=== PATIENT | female | born 1975 | race Hispanic/Latino ===

== ENCOUNTER 2024-06-12 06:44 | Emergency (ER) | payer OTHER ==
[2024-06-12] MEDS ORDERED: KETOROLAC 30 MG/ML INJ ONE (07:24)
[2024-06-12] MEDS ORDERED: dexAMETHasone 10 MG/ML VIAL ONE (07:24)
[2024-06-12 07:56] LABS: Absolute Basophils 0.1 K/uL (0-0.5); Absolute Eosinophils 0.2 K/uL (0-0.5); Absolute Lymphocytes (CBC) 1.7 K/uL (0.7-4.9); Absolute Monocytes 0.3 K/uL (0.1-1.3); Absolute Neutrophil 4.5 K/uL (1.8-8.0); Eosinophils % 3.4 % (0-4.4); Hemoglobin 14.5 g/dL (12.0-15.0); Lymphocytes % 24.5 % (15.3-44.8); MCH 28.9 pg (27.0-35.0); MCHC 33.7 g/dL (32.0-36.0); MCV 85.9 fL (80-100); MPV 7.7 fL (7.6-11.3); Monocytes % 5.1 % (3.3-12.3); Platelets 301 thou/uL (152-406); RBC Red Blood Cell Count 5.01 M/uL (3.86-4.86); Red Cell Distribution Width 13.3 % (12.1-15.2)
--- NOTE | 2024-06-12 08:11 | RAD REPORT ---
EXAMINATION: ONE VIEW CHEST XR CLINICAL INDICATION: Female, 49 years old.,right shoulder radiating pain TECHNIQUE: Frontal chest projection is submitted. Examination is limited by patient positioning and t echnique. COMPARISON: No prior exam. FINDINGS: The lungs are well inflated and clear. No pneumothorax or sizable effusion. The heart is normal in s ize. Mediastinal contours are unremarkable. IMPRESSION: No acute intrathoracic abnormalities.
--- NOTE | 2024-06-12 08:12 | RAD REPORT ---
EXAMINATION: CERVICAL SPINE 3 VIEWS CLINICAL INDICATION: Female, 49 years old. right shoulder/arm pain TECHNIQUE: AP, lateral and odontoid views of the cervical spine were obtained. COMPARISON: No prior exam. FINDINGS: Alignment: The cervical spine has normal alignment. Straightening of normal cervical lordosis, could be positional or secondary to muscle spasm. Bones: Vertebral body heights are maintained. No aggressive osseous lesions. Discs: Disc heights are maintained. Soft Tissue: No soft tissue abnormalities. IMPRESSION: No acute cervical spine fracture or subluxation. Straightening of normal cervical lordosis, could be positional or secondary to muscle spasm.
[2024-06-12] MEDS ORDERED: MORPHINE 4 MG/ML SYR ONE (08:14)
[2024-06-12 08:19] LABS: Anion Gap 7.6 mEq/L (5.0-15.0); BUN Blood Urea Nitrogen 11 mg/dL (7-18); Bicarbonate 28 mEq/L (21-32); Glomerular Filtration Rate 108 ml/min (=/>90); Glucose Level 109 mg/dL (74-106); Potassium 3.6 mEq/L (3.5-5.1); Sodium Level 139 mEq/L (136-145)
[2024-06-12 08:21] LABS: Troponin High Sensitivity < 3.0 pg/mL (<58.9)
--- NOTE | 2024-06-12 09:40 | RAD REPORT ---
EXAM: Angio Aorta For Dissection HISTORY: [facility] n/a scapular/right arm pain Bed Name: 19 COMPARISON: None TECHNIQUE: Multiple contiguous axial images were obtained a CTA of the chest and abdomen with contras t per aortic dissection protocol. Sagittal and coronal 3-D MIP reformats were performed. One or more of the following dose reduction techniques were used: Automated exposure control, adjustment of the mA and kV according to patient size, and iterative reconstruction. Unless otherwise specified, incidental findings do not require dedicated imaging follow-up. FINDINGS: PULMONARY ARTERIES: Normal in caliber without filling defects to suggest pulmonary emboli. MEDIASTINUM: No hilar or mediastinal lymphadenopathy. LUNGS: No focal infiltrates or masses. PLEURAL SPACE: No pleural effusion or pneumothorax. LIVER: Unremarkable. KIDNEYS: Unremarkable. SPLEEN: Unremarkable. PANCREAS: Unremarkable. Status post cholecystectomy. BOWEL: Unremarkable. RETROPERITONEUM: No lymphadenopathy BONES: Degenerative changes in the spine. ASCENDING THORACIC AORTA: Normal caliber without evidence of dissection or aneurysmal dilatation. DESCENDING THORACIC AORTA: Normal caliber without evidence of dissection or aneurysmal dilatation. ABDOMINAL AORTA: Normal caliber without evidence of dissection or aneurysmal dilatation. CELIAC TRUNK: Patent SMA: Patent SILVESTRE: Patent RENAL ARTERIES: Bilateral single renal arteries without significant atherosclerotic disease IMPRESSION: No evidence of thoracic or abdominal aortic aneurysm or dissection. No other acute findings.
[2024-06-12] MEDS ORDERED: HYDROMORPHONE HCL 1 MG/ML INJ ONE (09:55)
--- NOTE | 2024-06-12 10:27 | EDPHYS ---
Physician Documentation [facility] Name: Erna Hua Age: 49 yrs Sex: Female : 1975 Arrival Date: 06/12/2024 Time: 06:44 Bed 19 Private MD: ED Physician Chinedu Valiente HPI: 06/12 07:14 This 49 yrs old Female presents to ER via Ambulatory with complaints of rn Shoulder Pain, pain right shoulder blade. 07:14 The patient or guardian complains of pain. The complaints affect the right arm and rn right scapular area. Onset: The symptoms/episode began/occurred 3 day(s) ago. Treatment prior to arrival includes: Massage and [id number] medication. Modifying factors: The symptoms are alleviated by nothing. the symptoms are aggravated by movement. Severity of symptoms: At their worst the symptoms were moderate, in the emergency department the symptoms are unchanged. The patient has not experienced similar symptoms in the past. Patient reports right shoulder and shoulder blade pain that began 3 days ago. Patient denies injury. No chest pain or shortness of breath. Reports aching and pain that radiates down right arm. No weakness. Try massage and [id number] medication and only helping a little bit but returns. No neck pain or neck injury. No fever or chills.. 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 - Infectious Disease History:: Denies. - Social history:: Smoking status: Patient denies any tobacco usage or history of. - Family history:: not pertinent. - Hospitalizations: : No recent hospitalization is reported. ROS: 07:14 Constitutional: Negative for fever, chills, and weight loss, Neck: Negative for injury, rn pain, and swelling, Cardiovascular: Negative for chest pain, palpitations, and edema, Respiratory: Negative for shortness of breath, cough, wheezing, and pleuritic chest pain, Abdomen/GI: Negative for abdominal pain, nausea, vomiting, diarrhea, and constipation, Back: Negative for injury and pain, MS/Extremity: Positive for right shoulder and arm pain Skin: Negative for injury, rash, and discoloration, Neuro: Negative for headache, weakness, numbness, tingling, and seizure, Exam: 07:14 Constitutional: This is a well developed, well nourished patient who is awake, alert, rn appears uncomfortable. Position of comfort is right arm above her head Cardiovascular: Regular rate and rhythm. No pulse deficits. Respiratory: No increased work of breathing, no retractions or nasal flaring. Skin: Warm, dry, no cyanosis MS/ Extremity: Pulses equal, no cyanosis. Neurovascular intact. Painful range of motion of the right arm. No gross deformity. Equal circumference. Neuro: Awake and alert, GCS 15, oriented to person, place, time, and situation. Motor strength 5/5 in all extremities. Sensory grossly intact. 11:37 ECG was reviewed by the Attending Physician. rn Vital Signs: 06:56 Weight 81.65 kg; Height 5 ft. 2 in. ; vc1 06:59 BP 141 / 78; Pulse 67; Resp 18; Temp 97.5(TE); Pulse Ox 100% on R/A; aa5 10:03 BP 127 / 83; Pulse 63; Resp 19 S; Pulse Ox 100% on R/A; Pain 8/10; aa5 10:31 BP 113 / 67; Pulse 52; Resp 16 S; Pulse Ox 98% on R/A; aa5 06:56 Body Mass Index 32.92 (81.65 kg, 157.48 cm) vc1 10:03 Pain Scale: Adult aa5 MDM: 06:59 Medical Screening Exam initiated rn 10:25 Differential diagnosis: tendonitis, Radiculopathy, muscle spasm, pain in arm, radiated rn pain. Data reviewed: vital signs, nurses notes, lab test result(s), EKG, radiologic studies, CT scan, plain films, and as a result, I will discharge patient. Counseling: I had a detailed discussion with the patient and/or guardian regarding the historical points, exam findings, and any diagnostic results supporting the discharge/admit diagnosis, lab results, radiology results, the need for outpatient follow up, to return to the emergency department if symptoms worsen or persist or if there are any questions or concerns that arise at home. Response to treatment: the patient's symptoms have mildly improved after treatment, and as a result, I will discharge patient. Special discussion: I discussed with the patient/guardian in detail that at this point there is no indication for admission to the hospital. It is understood, however, that if the symptoms persist or worsen the patient needs to return immediately for re-evaluation. ED course: No acute findings and workup including x-rays and CT chest abdomen pelvis aorta. Troponin negative. ECG without ischemia. Patient still denies any chest pain. Right arm pain and scapular pain that is worsened with range of motion and palpation. No skin changes or evidence of infection. Will discharge home with medication and given return precautions.. 06/12 07:06 Order name: Basic Metabolic Panel; Complete Time: 08:22 rn 06/12 07:06 Order name: CBC with Diff; Complete Time: 08:12 rn 06/12 07:06 Order name: Troponin HS; Complete Time: 08:22 rn 06/12 07:06 Order name: XRAY Chest (1 view); Complete Time: 08:12 rn 06/12 07:06 Order name: XRAY C Spine Ap/lat; Complete Time: 08:12 rn 06/12 08:24 Order name: CT Aorta for Dissection; Complete Time: 09:42 rn 06/12 07:06 Order name: Cardiac monitoring; Complete Time: : rn 06/12 07:06 Order name: EKG - Nurse/Tech; Complete Time: : rn 06/12 07:06 Order name: IV Saline Lock; Complete Time: :49 rn 06/12 07:06 Order name: Labs collected and sent; Complete Time: : rn 06/12 07:06 Order name: O2 Per Protocol; Complete Time: : rn 06/12 07:06 Order name: O2 Sat Monitoring; Complete Time: :49 rn EC:37 Rate is 72 beats/min. Rhythm is regular. QRS [place] is Normal. NC interval is normal. QRS rn interval is normal. QT interval is normal. No Q waves. T waves are Normal. No ST changes noted. Clinical impression: NSR w/ Non-specific ST/T Changes. Interpreted by me. Reviewed by me. Administered Medications: 07:49 Drug: Decadron - Dexamethasone IVP 10 mg IVP once Route: IVP; Site: right antecubital; aa5 08:15 Follow up: Response: No adverse reaction aa5 07:49 Drug: Ketorolac IVP 15 mg IVP once Route: IVP; Site: right antecubital; aa5 08:15 Follow up: Response: No adverse reaction; Pain is unchanged, physician notified aa5 08:20 Drug: morphine IVP or IV 4 mg IVP once over 4 mins Route: IVP; Infused Over: 4 mins; kc6 Site: right antecubital; 08:30 Follow up: Response: No adverse reaction aa5 10:03 Drug: HYDROmorphone IVP 1 mg IVP once Route: IVP; Site: right antecubital; aa5 10:32 Follow up: Response: No adverse reaction aa5 Disposition Summary: 06/12/24 10:27 Discharge Ordered Notes: Location: Home rn Problem: new rn Symptoms: have improved rn Condition: Stable rn Diagnosis - Pain in right upper arm rn Followup: rn - With: Private Physician - When: As needed - Reason: Recheck today's complaints, Re-evaluation by your physician Discharge Instructions: - Discharge Summary Sheet rn - Musculoskeletal Pain rn - Pain Without a Known Cause rn Forms: - Medication Reconciliation Form rn - Antibiotic manager rn case - Prescription Opioid Use rn - Patient Portal Instructions rn - Leadership Thank You Letter rn Prescriptions: - gabapentin 100 mg Oral capsule - take 1 capsule ORAL route every 12 hours As needed; 14 capsule; Refills: 0, rn Product Selection Permitted - Tramadol 50 mg Oral Tablet - take 1 tablet ORAL route every 8 hours as needed; 12 tablet; Refills: 0, rn Product Selection Permitted - Medrol (Jossue) 4 mg Oral Tablets, Dose Pack - take 1 tablet ORAL route as directed - follow package instructions; 1 packet; rn Refills: 0, Product Selection Permitted Signatures: Dispatcher [employer] Chinedu Ann MD MD rn Calderon, Audri, RN RN aa5 Geri Zheng RN RN vc1 Valerie Quintero RN RN kc6 Corrections: (The following items were deleted from the chart) 07:06 07:06 BASIC METABOLIC PANEL+C.LAB.BRZ ordered. EDMS EDMS 07:06 07:06 CBC+H.LAB.BRZ ordered. EDMS EDMS 07:07 07:06 Troponin High Sensitivity+C.LAB.BRZ ordered. EDMS EDMS 07:07 07:07 Chest Single View+RAD.RAD.BRZ ordered. EDMS EDMS 07:07 07:07 C Spine Ap/Lat+RAD.RAD.BRZ ordered. EDMS EDMS
--- NOTE | 2024-06-12 10:27 | ER ---
Nurse's Notes [facility] Name: Erna Hua Age: 49 yrs Sex: Female : 1975 Arrival Date: 06/12/2024 Time: 06:44 Bed 19 Private MD: Diagnosis: Pain in right upper arm Presentation: 06/12 06:56 Chief complaint: Patient states: Pain to right shoulder blade that radiates down right vc1 arm, started Wednesday. Coronavirus screen: Client denies travel out of the [place] in the last 14 days. At this time, the client does not indicate any symptoms associated with coronavirus-19. Ebola Screen: Patient negative for fever greater than or equal to 101.5 degrees Fahrenheit, and additional compatible Ebola Virus Disease symptoms Patient denies exposure to infectious person. Patient denies travel to an Ebola-affected area in the 21 days before illness onset. No symptoms or risks identified at this time. Initial Sepsis Screen: Does the patient meet any 2 criteria? No. Patient's initial sepsis screen is negative. Does the patient have a suspected source of infection? No. Patient's initial sepsis screen is negative. Risk Assessment: Do you want to hurt yourself or someone else? Patient reports no desire to harm self or others. Onset of symptoms was June 09, 2024. Care prior to arrival: None. Activity prior to arrival: None. 06:56 Method Of Arrival: Ambulatory vc1 06:56 Acuity: ED 4 vc1 Triage Assessment: 07:10 General: Appears in no apparent distress. uncomfortable, Behavior is calm, cooperative, vc1 appropriate for age. Pain: Complains of pain in right scapular area Pain radiates to right arm Pain currently is 10 out of 10 on a pain scale. Quality of pain is described as sharp. EENT: No deficits noted. No signs and/or symptoms were reported regarding the EENT system. Neuro: Level of Consciousness is awake, alert, obeys commands, Oriented to person, place, time, situation, Appropriate for age. Cardiovascular: Capillary refill < 3 seconds Patient's skin is warm and dry. Respiratory: Airway is patent Respiratory effort is even, unlabored, Respiratory pattern is regular, symmetrical. GI: No deficits noted. No signs and/or symptoms were reported involving the gastrointestinal system. : No deficits noted. No signs and/or symptoms were reported regarding the genitourinary system. Derm: Skin is intact, is healthy with good turgor, Skin is dry, Skin is normal, Skin temperature is warm. Musculoskeletal: Circulation, motion, and sensation intact. Range of motion: intact in all extremities, Reports pain in right scapular area since Wednesday06/09/24. 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 - Infectious Disease History:: Denies. - Social history:: Smoking status: Patient denies any tobacco usage or history of. - Family history:: not pertinent. - Hospitalizations: : No recent hospitalization is reported. Screenin:09 Abuse screen: Denies threats or abuse. Nutritional screening: No deficits noted. vc1 Tuberculosis screening: No symptoms or risk factors identified. 07:40 [facility] ED Fall Risk Assessment (Adult) History of falling in the last 3 months, aa5 including since admission No falls in past 3 months (0 pts) Confusion or Disorientation No (0 pts) Intoxicated or Sedated No (0 pts) Impaired Gait No (0 pts) Mobility Assist Device Used No (0 pt) Altered Elimination No (0 pt) Score/Fall Risk Level 0 - 2 = Low Risk Oriented to surroundings, Maintained a safe environment, Educated pt \\T\\ family on fall prevention, incl call for assistance when getting out of bed, Assessed \\T\\ reinforced patient's understanding of fall precautions. Assessment: 07:40 General: Appears uncomfortable, Behavior is calm, cooperative. Pain: Complains of pain aa5 in right scapular area Pain radiates to right shoulder and right arm Pain Quality of pain is described as throbbing, Pain began Pt states "it started Wednesday in my shoulder blade and Wednesday it moved to my arm" Is continuous, Alleviated by "raising my arm up" Noted to be restless. Neuro: Level of Consciousness is awake, alert, obeys commands, Oriented to person, place, time, situation. Cardiovascular: Heart tones S1 S2 present Patient's skin is warm and dry. Rhythm is sinus rhythm. Respiratory: Airway is patent Respiratory effort is even, unlabored, Respiratory pattern is regular, symmetrical. GI: No signs and/or symptoms were reported involving the gastrointestinal system. : No signs and/or symptoms were reported regarding the genitourinary system. EENT: No signs and/or symptoms were reported regarding the EENT system. Derm: Skin is pink, warm \\T\\ dry. Musculoskeletal: Range of motion: intact in all extremities. 10:02 Reassessment: Patient is alert, oriented x 3, equal unlabored respirations, skin aa5 warm/dry/pink. Patient states symptoms have not improved. General: Appears uncomfortable. Pain: Pain currently is 8 out of 10 on a pain scale. Pain: Noted to be moaning, restless. 10:47 Reassessment: Patient is alert, oriented x 3, equal unlabored respirations, skin aa5 warm/dry/pink. Vital Signs: 06:56 Weight 81.65 kg; Height 5 ft. 2 in. ; vc1 06:59 BP 141 / 78; Pulse 67; Resp 18; Temp 97.5(TE); Pulse Ox 100% on R/A; aa5 10:03 BP 127 / 83; Pulse 63; Resp 19 S; Pulse Ox 100% on R/A; Pain 8/10; aa5 10:31 BP 113 / 67; Pulse 52; Resp 16 S; Pulse Ox 98% on R/A; aa5 06:56 Body Mass Index 32.92 (81.65 kg, 157.48 cm) vc1 10:03 Pain Scale: Adult aa5 ED Course: 06:50 Patient arrived in ED. gm2 06:59 Chinedu Valiente MD is Attending Physician. rn 07:04 Triage completed. vc1 07:09 Arm band placed on left wrist. vc1 07:10 Patient has correct armband on for positive identification. Bed in low position. Pulse vc1 ox on. NIBP on. 07:38 XRAY Chest (1 view) In Process Unspecified. EDMS 07:38 XRAY C Spine Ap/lat In Process Unspecified. EDMS 07:43 EKG done, by ED staff, reviewed by Chinedu Valiente MD. aa5 07:45 Initial lab(s) drawn, by me, sent to lab. Inserted saline lock: 20 gauge in right aa5 antecubital area, using aseptic technique. Blood collected. Flushed with 10 mL NS. 07:49 Emily Rincon, RN is Primary Nurse. aa5 07:54 No provider procedures requiring assistance completed. aa5 08:43 CT Aorta for Dissection In Process Unspecified. EDMS 10:47 IV discontinued, intact, bleeding controlled, No redness/swelling at site. Pressure aa5 dressing applied. Administered Medications: 07:49 Drug: Decadron - Dexamethasone IVP 10 mg IVP once Route: IVP; Site: right antecubital; aa5 08:15 Follow up: Response: No adverse reaction aa5 07:49 Drug: Ketorolac IVP 15 mg IVP once Route: IVP; Site: right antecubital; aa5 08:15 Follow up: Response: No adverse reaction; Pain is unchanged, physician notified aa5 08:20 Drug: morphine IVP or IV 4 mg IVP once over 4 mins Route: IVP; Infused Over: 4 mins; kc6 Site: right antecubital; 08:30 Follow up: Response: No adverse reaction aa5 10:03 Drug: HYDROmorphone IVP 1 mg IVP once Route: IVP; Site: right antecubital; aa5 10:32 Follow up: Response: No adverse reaction aa5 Medication: 07:54 VIS not applicable for this client. aa5 Outcome: 10:27 Discharge ordered by . rn 10:47 Discharged to home ambulatory, with significant other, aa5 10:47 Condition: stable 10:47 Discharge instructions given to patient, Instructed on discharge instructions, follow up and referral plans. medication usage, Demonstrated understanding of instructions, follow-up care, medications, Prescriptions given X 3, 11:14 Patient left the ED. aa5 Signatures: Dispatcher [employer] EDMS Chinedu Valiente MD MD rn Calderon, Audri, RN RN aa5 Geri Zheng RN RN vc1 Valerie Quintero RN RN kc6 Yaneth Wilkes gm2 [place], Siri af3 Corrections: (The following items were deleted from the chart) 10:05 06:59 BP 141 / 78; Pulse 67bpm; Resp 18bpm; Pulse Ox 100% RA; af3 aa5
[2024-06-12 11:27] VITALS: TEMP 97.5
[2024-06-12 11:38] VITALS: BP 113/67; O2SAT 98
--- NOTE | 2024-06-13 11:02 | EKG ---
Test Date: 2024-06-12 Test Time: 07:41:14 Faculty Research Assistant: BELIA MEASUREMENT RESULTS: Intervals: Rate: 72 DE: 174 QRSD: 88 QT: 408 QTc: 446 [place]: P: 60 DE: 174 QRS: 35 T: 59 INTERPRETIVE STATEMENTS: Sinus rhythm with sinus arrhythmia with occasional premature ventricular complexes Otherwise normal ECG No previous ECG available for comparison Electronically Signed On 06-13-24 10:58:38 CDT by Oj Julian
== END 2024-06-12 11:14 | disposition home or self-care (01) ==
LOC: ER 06:44
DX: M79.621 Pain in right upper arm (principal)
CPT/HCPCS: 93005; 85025; 80048; 36415; 84484; 71275; 74175; 71045; 72040; 96375; 96374; 99284; Q9967; J1100; J1171